=== PATIENT | female | born 1995 | race Caucasian/White ===

== ENCOUNTER 2016-09-11 17:29 | Emergency (ER) | payer MEDICAID, OTHER ==
[~2016-09-11] VITALS: Ht 149.9 cm; Wt 43.0 kg
[2016-09-11 17:31] VITALS: BP 142/80; PULSE 100; RESP 20; TEMP 98.1; O2SAT 99
--- NOTE | 2016-09-11 17:33 | PD ---
Physical Exam Date Seen by Provider: Sep 11, 2016 Time Seen by Provider: 17:32 Data Data Last Documented VS Vital Signs Date Time Temp Pulse Resp B/P Pulse Ox O2 Delivery O2 Flow Rate FiO2 09/11/16 17:31 98.1 100 20 142/80 99 Room Air MDM Supervised Visit with LEROY: No Narrative Course 21 YO F requests voluntary psych evaluation. Endorses passive SI. States "I need to get myself Galo Acted." Vitals reviewed. Patient seen in triage, awaiting bed placement. Marilu Stoner Sep 11, 2016 17:33
[2016-09-11 18:59] LABS: AUTOMATED NEUTROPHIL # 5.5 TH/MM3 (1.8-7.7); BASOPHIL # 0.1 TH/MM3 (0-0.2); BASOPHIL % 0.9 % (0.0-2.0); EOSINOPHIL # 0.4 TH/MM3 (0-0.4); EOSINOPHIL % 4.1 % (0.0-4.0); HEMATOCRIT 37.9 % (35.0-46.0); HEMO FLAGS DIFF FINAL; LYMPH % 24.2 % (9.0-44.0); LYMPHOCYTE # 2.2 TH/MM3 (1.0-4.8); MEAN CELL VOLUME 95.4 FL (80.0-100.0); MEAN CORPUSCULAR HEMOGLOBIN 31.3 PG (27.0-34.0); MEAN CORPUSCULAR HGB CONC 32.8 % (32.0-36.0); MONO % 9.4 % (0.0-8.0); NEUT % 61.4 % (16.0-70.0); PLATELET COUNT 234 TH/MM3 (150-450); RED BLOOD COUNT 3.97 MIL/MM3 (4.00-5.30); RED CELL DISTRIBUTION WIDTH 14.5 % (11.6-17.2); WHITE BLOOD COUNT 8.9 TH/MM3 (4.0-11.0)
[2016-09-11 19:04] LABS: AMPHETAMINE, URINE NEG (NEG); BARBITURATES, URINE NEG (NEG); COCAINE, URINE POS (NEG)
[2016-09-11 19:08] LABS: ANION GAP 5 MEQ/L (5-15); AST (GOT) 15 U/L (15-37); BICARBONATE 29.8 MEQ/L (21.0-32.0); BLOOD UREA NITROGEN 10 MG/DL (7-18); CHLORIDE 107 MEQ/L (98-107); GLOMERULAR FILTRATION RATE 86 ML/MIN (>89); POTASSIUM 3.3 MEQ/L (3.5-5.1); SODIUM (NA) 142 MEQ/L (136-145)
[2016-09-11 19:09] LABS: ALT (GPT) 17 U/L (10-53)
[2016-09-11 19:11] LABS: ALKALINE PHOSPHATASE 82 U/L (45-117); TOTAL BILIRUBIN ADULT 0.3 MG/DL (0.2-1.0)
--- NOTE | 2016-09-11 20:28 | PD ---
HPI Chief Complaint: Psychiatric Symptoms Time Seen by Provider: 17:52 Travel History International Travel<30 days: No Contact w/Intl Traveler<30days: No Traveled to known affect area: No History of Present Illness HPI 21-year-old female came to the emergency room with history of suicidal ideation. She says she does cocaine in the last time she did was last night. She also smokes marijuana. She says she is extremely depressed and just wants to . Does not have any specific plans. She was brought in by her friend voluntarily. Patient says she is not on any medications and has never been diagnosed with any psychiatric illness. [facility] Past Medical History Narrative Medical List of her past medical, surgical, social and family history is reviewed from the nursing note. Asthma: Yes (no meds currently) Diminished Hearing: No Headaches: Yes Hepatitis: No (Dad had hepatitis C) Tetanus Vaccination: Unknown Influenza Vaccination: No ?: Unknown LMP: : 0 Past Surgical History Body Medical Devices: plate with 8 pins and eight screws right arm Tonsillectomy: Yes Social History Alcohol Use: No Tobacco Use: Yes (pack a day) Substance Use: Yes (cocaine last night) Allergies-Medications (Allergen,Severity, Reaction): Coded Allergies: No Known Allergies (Verified Allergy, Mild, 11/05/03) Comments No known drug allergies. Reported Meds & Prescriptions Reported Meds & Active Scripts Active No Active Prescriptions or Reported Medications Narrative Medication List of her home medications reviewed from the nursing note. Review of Systems Except as stated in HPI: all other systems reviewed are Neg Physical Exam Narrative GENERAL: Awake, alert, anxious SKIN: Focused skin assessment warm/dry. HEAD: Atraumatic. Normocephalic. EYES: Pupils equal and round. No scleral icterus. No injection or drainage. ENT: No nasal bleeding or discharge. Mucous membranes pink and moist. NECK: Trachea midline. No JVD. CARDIOVASCULAR: Regular rate and rhythm. No murmur appreciated. RESPIRATORY: No accessory muscle use. Clear to auscultation. Breath sounds equal bilaterally. GASTROINTESTINAL: Abdomen soft, non-tender, nondistended. Hepatic and splenic margins not palpable. MUSCULOSKELETAL: No obvious deformities. No clubbing. No cyanosis. No edema. NEUROLOGICAL: Awake and alert. No obvious cranial nerve deficits. Motor grossly within normal limits. Normal speech. PSYCHIATRIC: Appropriate mood and affect; insight and judgment normal. Data Data Last Documented VS Vital Signs Date Time Temp Pulse Resp B/P Pulse Ox O2 Delivery O2 Flow Rate FiO2 09/12/16 14:59 80 18 108/54 99 Room Air 09/12/16 10:25 99.0 Orders Complete Blood Count With Diff (09/11/16 17:54) Comprehensive Metabolic Panel (09/11/16 17:54) Psych Screen (09/11/16 17:54) Drug Screen, Random Urine (09/11/16 17:54) Alcohol (Ethanol) (09/11/16 17:54) Lorazepam (Ativan) (09/11/16 20:30) Diet Regular Basic (09/12/16 Breakfast) Diet Regular Basic (09/12/16 Lunch) Diet Regular Basic (09/12/16 Dinner) Labs Laboratory Tests Test 09/11/16 18:25 White Blood Count 8.9 TH/MM3 Red Blood Count 3.97 MIL/MM3 Hemoglobin 12.4 GM/DL Hematocrit 37.9 % Mean Corpuscular Volume 95.4 FL Mean Corpuscular Hemoglobin 31.3 PG Mean Corpuscular Hemoglobin 32.8 % Concent Red Cell Distribution Width 14.5 % Platelet Count 234 TH/MM3 Mean Platelet Volume 8.4 FL Neutrophils (%) (Auto) 61.4 % Lymphocytes (%) (Auto) 24.2 % Monocytes (%) (Auto) 9.4 % Eosinophils (%) (Auto) 4.1 % Basophils (%) (Auto) 0.9 % Neutrophils # (Auto) 5.5 TH/MM3 Lymphocytes # (Auto) 2.2 TH/MM3 Monocytes # (Auto) 0.8 TH/MM3 Eosinophils # (Auto) 0.4 TH/MM3 Basophils # (Auto) 0.1 TH/MM3 CBC Comment DIFF FINAL Differential Comment Sodium Level 142 MEQ/L Potassium Level 3.3 MEQ/L Chloride Level 107 MEQ/L Carbon Dioxide Level 29.8 MEQ/L Anion Gap 5 MEQ/L Blood Urea Nitrogen 10 MG/DL Creatinine 0.83 MG/DL Estimat Glomerular Filtration 86 ML/MIN Rate Random Glucose 77 MG/DL Calcium Level 8.9 MG/DL Total Bilirubin 0.3 MG/DL Aspartate Amino Transf 15 U/L (AST/SGOT) Alanine Aminotransferase 17 U/L (ALT/SGPT) Alkaline Phosphatase 82 U/L Total Protein 6.7 GM/DL Albumin 3.6 GM/DL Urine Opiates Screen NEG Urine Barbiturates Screen NEG Urine Amphetamines Screen NEG Urine Benzodiazepines Screen NEG Urine Cocaine Screen POS Urine Cannabinoids Screen POS Ethyl Alcohol Level LESS THAN 3 MG/DL MDM Medical Decision Making Medical Screen Exam Complete: Yes Emergency Medical Condition: Yes Medical Record Reviewed: Yes Differential Diagnosis Polysubstance abuse, suicidal ideation, anxiety Narrative Course 8:30 PM blood test results of back and patient is medically cleared. Urine drug is positive for cocaine and marijuana. Patient will require psych screen. She was getting anxious and I have ordered 1 mg of by mouth Ativan for her. Procedures EKG Prior to Arrival: No Scripts No Active Prescriptions or Reported Meds Luis Alfredo Sevilla MD Sep 11, 2016 20:28
[2016-09-11] MEDS ORDERED: LORazepam 1 MG TAB PO ONE (20:30)
[2016-09-12 02:25] VITALS: BP 88/53; PULSE 82; RESP 16; TEMP 98.3
[2016-09-12 06:48] VITALS: BP 100/58; PULSE 80; RESP 16; TEMP 98; O2SAT 98
[2016-09-12 10:25] VITALS: BP 108/54; PULSE 80; RESP 18; TEMP 99; O2SAT 99
[2016-09-12 14:59] VITALS: BP 108/54; PULSE 80; RESP 18; O2SAT 99
--- NOTE | 2016-09-12 16:17 | PD.PSY.CON ---
Provisional Diagnosis Admission Date History of Present Illness Service Psychiatry Consult Requested By Primary Care Physician No Primary Care Physician HPI The patient is a 21-year-old woman, domicile with , but in the process of divorce, unemployed, without any previous psychiatric history, no previous psychiatric hospitalizations, no previous suicide attempts , she has history of self cutting behavior, cocaine and cannabis use disorder, no significant medical history, who was brought to the ER involuntary basis by her friend due to suicidal thoughts and depression after using cocaine. Today a psychiatric evaluation, patient denies depressive symptoms, she denies suicidal intentions, she says that she has been stressed due to the process of her , but last night using cocaine and marijuana was not a good idea "because I became depressed momentarily". Patient says that she is committed to look for outpatient counseling. She is oriented 3, no agitation, no aggressive behavior, no paranoia, no delusions present. Review of Systems Constitutional: DENIES: Diaphoretic episodes, Fatigue, Fever, Weight gain, Weight loss, Chills, Dizziness, Change in appetite, Night Sweats Endocrine: DENIES: Abnorml menstrual pattern, Heat/cold intolerance, Polydipsia , Polyuria, Polyphagia Eyes: DENIES: Blurred vision, Diplopia, Eye inflammation, Eye pain, Vision loss , Photosensitivity, Double Vision Ears, nose, mouth, throat: DENIES: Tinnitus, Hearing loss, Vertigo, Nasal discharge, Oral lesions, Throat pain, Hoarseness, Ear Pain, Running Nose, Epistaxis, Sinus Pain, Toothache, Odynophagia Respiratory: DENIES: Apneas, Cough, Snoring, Wheezing, Hemoptysis, Sputum production, Shortness of breath Cardiovascular: DENIES: Chest pain, Palpitations, Syncope, Dyspnea on Exertion , PND, Lower Extremity Edema, Orthopnea, Claudication Gastrointestinal: DENIES: Abdominal pain, Black stools, Bloody stools, Constipation, Diarrhea, Nausea, Vomiting, Difficulty Swallowing, Anorexia Genitourinary: DENIES: Abnormal vaginal bleeding, Dysmenorrhea, Dyspareunia, Sexual dysfunction, Urinary frequency, Urinary incontinence, Urgency, Hematuria , Dysuria, Nocturia, Vaginal discharge Musculoskeletal: DENIES: Joint pain, Muscle aches, Stiffness, Joint Swelling, Back pain, Neck pain Integumentary: DENIES: Abnormal pigmentation, Pruritus, Rash, Nail changes, Breast masses, Breast skin changes, Nipple discharge Hematologic/lymphatic: DENIES: Bruising, Lymphadenopathy Immunologic/allergic: DENIES: Eczema, Urticaria Neurologic: DENIES: Abnormal gait, Headache, Localized weakness, Paresthesias, Seizures, Speech Problems, Tremor, Poor Balance Psychiatric: DENIES: Anxiety, Confusion, Mood changes, Depression, Hallucinations, Agitation, Suicidal Ideation, Homicidal Ideation, Delusions Past Family Social History Coded Allergies: No Known Allergies (Verified Allergy, Mild, 11/05/03) No Active Prescriptions or Reported Meds Family History No family psychiatric history Social History He was born and raised in [place], she lives with her , she is , she is unemployed, Physical Exam Vital Signs Vital Signs Date Time Temp Pulse Resp B/P Pulse Ox O2 Delivery O2 Flow Rate FiO2 09/12/16 14:59 80 18 108/54 99 Room Air 09/12/16 10:25 99.0 Mental Status Examination Speech: Unremarkable Orientation: x3 Memory: Unremarkable Thought Process: Logical Thought Content: Unremarkable Hallucination Type: None Suicidal Ideation: No Previous Suicide Attempts: No Homicidal Ideation: No Previous Homicide Attempts: No Affect: Good Mood: Euthymic, Angry Assessment & Plan Problem List: (1) Substance induced mood disorder Assessment & Plan: Patient does not meet criteria for psychiatric admission at this moment, she denies depressive symptoms, she denies anxiety, she denies psychosis. Patient denies suicidal or homicidal ideation. Galo act will be lifted. ICD Code: F19.94 Assessment & Plan Estimated LOS: Isaías Fu MD Sep 12, 2016 16:17
== END 2016-09-12 18:14 | disposition home or self-care (01) ==
LOC: NEPD 17:29 → NEPJ 09-12 18:14
DX: R45.851 Suicidal ideations (principal); F12.90 Cannabis use, unspecified, uncomplicated; F17.200 Nicotine dependence, unspecified, uncomplicated; F14.10 Cocaine abuse, uncomplicated
CPT/HCPCS: 80053; 80307; 85025; 99284